=== PATIENT | female | born 1975 | race Caucasian/White ===

== ENCOUNTER 2016-06-24 07:34 | Outpatient (CLI) ==
[2013-06-29 00:37] VITALS: BMI 36.3
[2016-06-24 08:19] LABS: CREATININE 0.75 mg/dL (0.60-1.30)
--- NOTE | 2016-06-24 10:10 | CT ---
EXAM: CT soft tissue neck with and without contrast. HISTORY: Neck pain. Palpable anterior neck mass. COMPARISON: None available. TECHNIQUE: Multiple axial images of the neck were obtained prior to and following intravenous admin istration of 75 mL of Omnipaque 350, low osmolar. Images were reformatted in the sagittal and coron al plane. FINDINGS: No intracranial or intraorbital abnormality identified. Paranasal sinuses and mastoid ai r cells are clear. The parotid and submandibular glands are unremarkable. Multiple lymph nodes present throughout the neck at multiple levels bilaterally, none measuring greater than 0.7 cm short axis. Radiopaque emeka er was placed in the anterior right neck near the submental region to the right of midline in the ar ea of concern. There is a 0.5 cm lymph node present near this area. 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 No subcutaneous edema or fluid collections no sidney. The pharyngeal soft tissues, epiglottis and laryngeal structures are without localized abnormality. Subglottic airway is normal in caliber. Thyroid gland is normal in size. Vascular structures of t he neck are patent. Lung apices are clear. Osseous structures are within normal limits for the patient's age. IMPRESSION: 1. 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 The asymmetry caused by the p resence of the right mylohyoid muscle may account for the palpable concern. 2. Small nonenlarged cervical lymph nodes, including in the right submental region which could also account for the palpable concern. 3. No significant abnormality detected in the neck
== END 2016-06-24 07:35 | disposition home or self-care (01) ==
LOC: RAD 07:34
PROVIDERS: ATTEND Family Medicine
DX: R22.1 Localized swelling, mass and lump, neck (principal)
CPT/HCPCS: 36415; 82565

== ENCOUNTER 2018-04-11 13:16 | Emergency (ER) ==
[2018-04-11 13:21] VITALS: BP 142/68; TEMP 98.8; BMI 36.2
[2018-04-11] MEDS ORDERED: ZOFRAN 4 MG/2 ML IM STA (13:31)
[2018-04-11] MEDS ORDERED: SODIUM CHLORIDE 1,000 ML IV STA ×2 (13:33→14:40)
[2018-04-11] MEDS ORDERED: ZOFRAN 4 MG/2 ML IVP STA ×2 (13:33→15:15)
[2018-04-11] MEDS ORDERED: K-DUR PO STA ×2 (14:01→17:19)
--- NOTE | 2018-04-11 14:07 | CT ---
EXAM: CT of the abdomen pelvis without contrast History: Abdominal pain with nausea and vomiting. Comparison: CT abdomen pelvis 04/21/2013 Technique: Multiplanar CT images through the abdomen pelvis were obtained without the administration of IV contrast Findings: Lung bases are clear. No acute osseous abnormalities. No focal liver or splenic lesions. No renal stones and no hydronephrosis. No ureteral calculi. Sta ble tiny benign left adrenal adenoma. Right adrenal gland is unremarkable. The appendix is normal. No peripancreatic inflammation. No free air and no ascites. No inflammatory stranding. No bladder wall thickening. No perirectal inflammation. No pelvic masses. No bowel obstruction. Impression: No acute intra-abdominal or pelvic process
--- NOTE | 2018-04-11 15:07 | ED.PDOC ---
General ED Provider: Dr. KOLBY BONILLA Chief Complaint: Nausea/Vomiting Stated Complaint: ABDOMINAL PAIN NAUSEA, VOMITING Time Seen by Physician: 13:19 (NURSE PRESENT AT ALL TIMES NO VOMITING IN ER ) Mode of Arrival: Walk-In Information Source: Patient Exam Limitations: No limitations Primary Care Provider: CAROLINE HASSAN Nursing and Triage Documentation Reviewed and Agree: Yes Does patient meet sepsis criteria?: No If yes, has appropriate treatment been initiated?: No System Inflammatory Response Syndrome: Not Applicable Sepsis Protocol: For patient's 13 years and over: Temp is 96.8 and below OR 101 and greater Pulse >90 BPM Resp >20/minute Acutely Altered Mental Status Are patient's symptoms suggestive of a new infection, such as: -Pneumonia -Skin, Soft Tissue -Endocarditis -UTI -Bone, Joint Infection -Implantable Device -Acute Abdominal Infection -Wound Infection -Meningitis -Blood Stream Catheter Infection -Unknown GI Complaint Exam - Abdominal Pain Complaint/Exam Onset: Gradual Duration: 2 DAYS Symptoms Are: Resolved Timing: Intermittent Initial Severity: Mild Current Severity: None Location of Pain: Diffuse Character: Reports: Aching Aggravating: Reports: None Alleviating: Reports: None Associated Signs and Symptoms: Reports: Decreased appetite, Nausea, Vomiting. Denies: Diaphoresis, Fever, Cough, Chest pain, Dizziness, Back pain, Constipation, Blood in stool, Dysuria, Urinary frequency, Decreased urine output , Vaginal bleeding, Vaginal discharge, Diarrhea, Sore throat, Decreased activity AAA Risk Factors: Reports: None Cardiac Risk Factors: Reports: None Ectopic Risk Factors: Reports: None Ovarian Torsion Risk Factors: Reports: None Surgical Obstruction Risk Factors: Reports: None Patient Rh Status: Unknown Abdominal Findings: Present: None Differential Diagnoses: Appendicitis, Bowel Obstruction, Gastroenteritis, UTI Review of Systems - Review Of Systems Constitutional: Reports: No symptoms Eyes: Reports: No symptoms Ears, Nose, Mouth, Throat: Reports: No symptoms Respiratory: Reports: No symptoms Cardiac: Reports: No symptoms GI: Reports: Abdominal pain, Nausea, Poor appetite : Reports: No symptoms Musculoskeletal: Reports: No symptoms Skin: Reports: No symptoms Neurological: Reports: No symptoms Endocrine: Reports: No symptoms Hematologic/Lymphatic: Reports: No symptoms All Other Systems: Reviewed and Negative Past Medical History - Past Medical History Previously Healthy: Yes Endocrine: Reports: None Cardiovascular: Reports: None Respiratory: Reports: None Hematological: Reports: None Gastrointestinal: Reports: None Genitourinary: Reports: None Neuro/Psych: Reports: None Musculoskeletal: Reports: None Cancer: Reports: None Last Menstrual Period: none - Surgical History General Surgical History: Reports: Cholecystectomy, Other (C SECTION) - Family History Family History: Reports: None - Social History Smoking Status: Current every day smoker, Heavy tobacco smoker Hx Substance Use: No Alcohol Screening: None Physical Exam - Physical Exam Appearance: Well-appearing, No pain distress, Well-nourished Eyes: MICHELLE, EOMI, Conjunctiva clear ENT: Ears normal, Nose normal, Oropharynx normal Respiratory: Airway patent, Breath sounds clear, Breath sounds equal, Respirations nonlabored Cardiovascular: RRR, Pulses normal, No rub, No murmur GI/: Soft, Nontender, No masses, Bowel sounds normal, No Organomegaly Musculoskeletal: Normal strength, ROM intact, No edema, No calf tenderness Skin: Warm, Dry, Normal color Neurological: Sensation intact, Motor intact, Reflexes intact, Cranial nerves intact, Alert, Oriented Psychiatric: Affect appropriate, Mood appropriate Interpretation - Radiology Interpretation Radiology Interpretation By: Radiologist Radiology Results: No acute changes Re-Evaluation - Re-Evaluation Time of Re-Evaluation: 14:00 Status: Improved Vital Signs Stable: Yes Pain Level: 0 Appearance: NAD Lungs: Clear Skin: Warm and Dry Neuro: Alert and Oriented X3 CV: RRR - Re-Evaluation Time of Re-Evaluation: 15:07 Status: Improved Vital Signs Stable: Yes Pain Level: 0 Appearance: NAD Skin: Warm and Dry Neuro: Alert and Oriented X3 CV: RRR (ABNORMAL LFT AND HEPATIC PANEL SEND OUT DISCUSSED URGED TO FOLLOW UP WITH PMD) Critical Care Note - Critical Care Note Total Time (mins): 0 Course - Course Hematology/Chemistry: 04/11/18 13:35 04/11/18 13:35 Orders, Labs, Meds: Lab Review 04/11/18 04/11/18 04/11/18 13:35 13:35 13:45 WBC 10.69 H RBC 5.24 Hgb 14.0 Hct 42.0 MCV 80.2 L MCH 26.7 L MCHC 33.3 RDW Coeff of Gadiel 14.1 Plt Count 330 Immature Gran % (Auto) 0.4 Neut % (Auto) 66.6 Lymph % (Auto) 25.0 Cameron % (Auto) 7.7 Eos % (Auto) 0.0 Baso % (Auto) 0.3 Immature Gran # (Auto) 0.0 Neut # (Auto) 7.1 H Lymph # (Auto) 2.7 Cameron # (Auto) 0.8 Eos # (Auto) 0.0 Baso # (Auto) 0.0 Sodium 138.5 Potassium 3.10 L Chloride 91.1 L Carbon Dioxide 32.6 H Anion Gap 17.90 BUN 17.0 Creatinine 0.76 Estimated GFR (MDRD) 84.00 BUN/Creatinine Ratio 22.36 Glucose 131.3 H Calcium 9.69 Total Bilirubin 1.36 H AST 57.1 H ALT 47.4 H Alkaline Phosphatase 55.5 Total Protein 8.42 H Albumin 4.97 Globulin 3.45 Albumin/Globulin Ratio 1.44 Amylase 56.2 Lipase 48.2 Urine Color Urine Clarity Urine pH Ur Specific Speer Urine Protein Urine Glucose (UA) Urine Ketones Urine Blood Urine Nitrite Urine Bilirubin Urine Urobilinogen Ur Leukocyte Esterase Urine Microscopic RBC Urine Microscopic WBC Ur Squamous Epith Cells Urine Bacteria Influ A Molecular Assay Negative by naat Influ B Molecular Assay Negative by naat 04/11/18 15:31 WBC RBC Hgb Hct MCV MCH MCHC RDW Coeff of Gadiel Plt Count Immature Gran % (Auto) Neut % (Auto) Lymph % (Auto) Cameron % (Auto) Eos % (Auto) Baso % (Auto) Immature Gran # (Auto) Neut # (Auto) Lymph # (Auto) Cameron # (Auto) Eos # (Auto) Baso # (Auto) Sodium Potassium Chloride Carbon Dioxide Anion Gap BUN Creatinine Estimated GFR (MDRD) BUN/Creatinine Ratio Glucose Calcium Total Bilirubin AST ALT Alkaline Phosphatase Total Protein Albumin Globulin Albumin/Globulin Ratio Amylase Lipase Urine Color Yellow Urine Clarity Clear Urine pH 7.0 Ur Specific Speer 1.020 Urine Protein 1+ Urine Glucose (UA) Negative Urine Ketones 2+ Urine Blood 1+ Urine Nitrite Negative Urine Bilirubin Negative Urine Urobilinogen 1.0 Ur Leukocyte Esterase Negative Urine Microscopic RBC 10-20 Urine Microscopic WBC 0-2 Ur Squamous Epith Cells 0-2 Urine Bacteria Trace Influ A Molecular Assay Influ B Molecular Assay Orders Category Date Time Status EKG-(ED ONLY) Stat CARDIO 04/11/18 15:52 Completed NPO REMINDER: IMAGING ONCE CARE 04/11/18 15:54 Active AMYLASE Stat LAB 04/11/18 13:35 Completed CBC W/ AUTO DIFF Stat LAB 04/11/18 13:35 Completed COMPREHENSIVE METABOLIC PANEL Stat LAB 04/11/18 13:35 Completed FLU A/B MOLECULAR Stat LAB 04/11/18 13:45 Completed HEPATITIS PANEL, ACUTE Stat LAB 04/11/18 13:35 Received LIPASE Stat LAB 04/11/18 13:35 Completed MOLECULAR GROUP A STREP Stat LAB 04/11/18 13:45 Completed URINALYSIS C & S IF INDICATED Stat LAB 04/11/18 15:31 Completed Ondansetron HCl/Pf [Zofran 4 mg/2 ml] MEDS 04/11/18 13:33 Discontinued 4 mg IVP ONCE STA Ondansetron HCl/Pf [Zofran 4 mg/2 ml] MEDS 04/11/18 15:15 Discontinued 4 mg IVP ONCE STA Pantoprazole Sodium [Protonix IV] MEDS 04/11/18 15:54 Discontinued 40 mg IVP ONCE STA Potassium Chloride [K-Dur] MEDS 04/11/18 17:19 Discontinued 40 meq PO ONCE STA Promethazine HCl [Phenergan 25 mg/ml Vial] MEDS 04/11/18 16:14 Discontinued 25 mg .ROUTE .STK-MED ONE Promethazine HCl [Phenergan 25 mg/ml Vial] 25 mg MEDS 04/11/18 15:54 Discontinued 0.9 % Sodium Chloride [Sodium Chloride] 50 ml IV ONCE Sodium Chloride 0.9% [Sodium Chloride] 1,000 ml MEDS 04/11/18 13:33 Discontinued IV BOLUS Sodium Chloride 0.9% [Sodium Chloride] 1,000 ml MEDS 04/11/18 14:[address] ABD/PEL WO RENAL STONE PROT Stat RADS 04/11/18 13:[address] ABDOMEN/PELVIS W CONTRAST Stat RADS 04/11/18 15:[address] CHEST W/O CONTRAST Stat RADS 04/11/18 15:53 Completed Medications Discontinued Medications Generic Name Dose Route Start Last Admin Trade Name Freq PRN Reason Stop Dose Admin Sodium Chloride 1,000 mls @ 1,000 mls/hr 04/11/18 13:33 04/11/18 13:42 Sodium Chloride IV 04/11/18 14:32 1,000 mls/hr BOLUS STA Administration Sodium Chloride 1,000 mls @ 1,000 mls/hr 04/11/18 14:40 04/11/18 14:44 Sodium Chloride IV 04/11/18 15:39 1,000 mls/hr BOLUS STA Administration Promethazine HCl 25 mg/ Sodium 51 mls @ 75 mls/hr 04/11/18 15:54 04/11/18 16: 20 Chloride IV 04/11/18 16:34 75 mls/hr ONCE STA Administration Ondansetron HCl 4 mg 04/11/18 13:33 04/11/18 13:42 Zofran 4 Mg/2 Ml IVP 04/11/18 13:34 4 mg ONCE STA Administration Ondansetron HCl 4 mg 04/11/18 15:15 04/11/18 15:36 Zofran 4 Mg/2 Ml IVP 04/11/18 15:16 4 mg ONCE STA Administration Pantoprazole Sodium 40 mg 04/11/18 15:54 04/11/18 16:20 Protonix Iv IVP 04/11/18 15:55 40 mg ONCE STA Administration Potassium Chloride 40 meq 04/11/18 17:19 K-Dur PO 04/11/18 17:20 ONCE STA Vital Signs: Temp Pulse Resp BP Pulse Ox 04/11/18 13:17 98.8 F 52 L 20 142/68 H 97 Departure - Departure Time of Disposition: 15:09 (pelvic mass discusseed with the pt present kane malave ) Disposition: HOME SELF-CARE Discharge Problem: Nausea, Vomiting, Hypokalemia, Abnormal liver enzymes Abdominal pain Qualifiers: Abdominal location: unspecified location Qualified Code(s): R10.9 - Unspecified abdominal pain Instructions: Abdominal Pain (ED) Condition: Good Pt referred to PMD for follow-up: Yes IPMP verified?: No Additional Instructions: Please call your Family Physician as soon as possible to schedule a follow-up appointment. your liver enzymes are high this could mean underlying liver disease or an infection. A hepatitis panel has been ordered for you the results will take a few days to return. SEE YOU MD COR[place] K-Dur 40mg daily for 4 days (4 tabs)---Start in the am Zofran 4mg twice a day for 2 days (5 tabs) AMASS EXIST IN YOUR PELVIS YOU MUST SEE YOUR MD Allergies/Adverse Reactions: Allergies latex Adverse Reaction (Verified 04/11/18 13:22) pain medicine Adverse Reaction (Uncoded 04/11/18 13:22) Home Medications: Ambulatory Orders 1 [No Reported Medications] 03/01/13 Disposition Discussed With: Patient
[2018-04-11] MEDS ORDERED: PHENERGAN 25 MG/ML VIAL 25 MG in SODIUM CHLORIDE 50 ML IV STA (15:54)
[2018-04-11] MEDS ORDERED: PROTONIX IV IVP STA (15:54)
[2018-04-11] MEDS ORDERED: PHENERGAN 25 MG/ML VIAL ONE (16:14)
--- NOTE | 2018-04-11 16:22 | CT ---
EXAM: CT of the chest without contrast History: Cough. Comparison: Chest radiograph 04/21/2013, CT abdomen pelvis 04/11/2018 Technique: Multiplanar CT images through the thorax were obtained without the administration of IV c ontrast Findings: Heart size is normal. No pericardial effusion. No thoracic aortic aneurysm. No patholog ically enlarged thoracic lymph nodes. No consolidation. No pleural fluid and no pneumothorax. No l matthieu masses or lung nodules. For details in the upper abdomen, please see dedicated CT abdomen pelvis done on the same day. No ac [place] osseous abnormalities. Impression: Unremarkable exam
--- NOTE | 2018-04-11 16:33 | CT ---
EXAM: CT of the abdomen pelvis with contrast History: Abdominal pain and vomiting. Comparison: Right upper quadrant abdominal ultrasound 04/21/2013, CT abdomen pelvis 04/11/2018 Technique: Multiplanar CT images through the abdomen pelvis were obtained following administration o f IV contrast Findings: Lung bases are clear. No acute osseous abnormalities. Status post cholecystectomy. No focal liver or splenic lesions. Pancreas is within normal limits. Stable small benign left adrenal adenoma. Right adrenal gland is within normal limits. No renal mas ses. No hydronephrosis. The appendix is normal. No bowel obstruction. No bladder wall thickening. No free air and no ascites. 2.6 cm lobulated mass within the midline central pelvis appears to be associated with the uterus or vaginal cuff. No perirectal inflammation. Normal abdominal aorta. Fl uid seen in the stomach. Nondilated fluid filled loops of large and small bowel and mild mucosal pro minence of the bowel. Impression: 1. Mild gastroenteritis. No evidence for bowel obstruction. 2. Lobulated mass within the midline central pelvis could represent uterine fibroid or abnormality o f the vaginal cuff if patient has had a hysterectomy. Recommend further evaluation with outpatient p elvic ultrasound.
== END 2018-04-11 17:38 | disposition home or self-care (01) ==
LOC: ED 13:16
DX: R11.2 Nausea with vomiting, unspecified (principal); R10.9 Unspecified abdominal pain; R63.0 Anorexia; E87.6 Hypokalemia; R94.5 Abnormal results of liver function studies
CPT/HCPCS: 36415; 74176; 80053; 80074; 81001; 82150; 83690; 85025; 87502; 87651; 93005; 93010; 96361; 96365; 96375; 96376; 99283

== ENCOUNTER 2018-08-09 11:07 | Emergency (ER) ==
[2018-08-09 11:15] VITALS: BP 126/83; TEMP 97.6; BMI 35.4
[2018-08-09] MEDS ORDERED: ASPIRIN CHEWABLE PO STA (11:46)
--- NOTE | 2018-08-09 13:24 | CT ---
EXAM: CTA CHEST (PE PROTOCOL) HISTORY: Pain and shortness of breath TECHNIQUE: CTA chest with intravenous contrast. Multiplanar images were provided with 3-D reconstru ctions. 100 mL Omnipaque. COMPARISON: 04/11/2018 FINDINGS: No pulmonary arterial filling defect. Thoracic aorta is within normal limits. Normal heart size. T here is no pericardial effusion. Lung evaluation is limited by respiratory motion. No sanjana consolidated pneumonia is seen. Mild int erstitial infiltrate would be difficult to completely excluded. There is no pleural fluid or pneumot horax. There are no acute bony finding. IMPRESSION: 1. No pulmonary arterial thromboembolism. 2. Limited evaluation of the lungs. No consolidated pneumonia, pleural fluid or pneumothorax. It w ould be difficult to exclude mild interstitial pneumonitis or edema.
[2018-08-09] MEDS ORDERED: DECADRON 4 MG/ML SDV IM STA (13:47)
--- NOTE | 2018-08-09 13:47 | ED.PDOC ---
General ED Provider: Dr. KOLBY BONILLA Chief Complaint: Shortness of Air Stated Complaint: short of air , cough , congestion chest pain with coughing shadi Time Seen by Physician: 11:11 Mode of Arrival: Walk-In Information Source: Patient Exam Limitations: No limitations (nursing present ) Nursing and Triage Documentation Reviewed and Agree: Yes Does patient meet sepsis criteria?: No System Inflammatory Response Syndrome: Not Applicable Sepsis Protocol: For patient's 13 years and over: Temp is 96.8 and below OR 101 and greater Pulse >90 BPM Resp >20/minute Acutely Altered Mental Status Are patient's symptoms suggestive of a new infection, such as: -Pneumonia -Skin, Soft Tissue -Endocarditis -UTI -Bone, Joint Infection -Implantable Device -Acute Abdominal Infection -Wound Infection -Meningitis -Blood Stream Catheter Infection -Unknown Respiratory Complaint Exam - Respiratory Complaint/Exam Onset/Duration: 3 days Symptoms Are: Resolved Timing: Intermittent Initial Severity: Moderate Location: Nose, Throat, Chest Character: Reports: Non-productive cough Aggravating: Reports: URI Alleviating: Reports: Spontaneous resolution Associated Signs and Symptoms: Reports: Chills, Pleuritic chest pain, URI, Nasal congestion Related History: Reports: Similar episode History of Healthcare-Acquired Pneumonia: No Pulmonary Embolism Risk Factors: Smoking (1/2 pk) Cardiac Risk Factors: Reports: Smoking Pseudomonas Risk Factors: Reports: None Tuberculosis Risk Factors: Reports: None Status Asthmaticus Risk Factors: Reports: None Home Oxygen Use: No Recent Stress Test: No Recent Echo/LV Function: No Current Antibiotic Use: No Current Asthma Medication Use: No Inadequate Respiratory Effort: No Dysphagia Present: No Stridor Present: No JVD Present: No Accessory Muscle Use: No Retractions: Not Present Diminished Breath Sounds: No Sinus Tenderness: None Grunting Respirations: No Kussmaul Respirations: No Differential Diagnoses: COPD Exacerbation, Pneumonia, Bronchitis, URI, Lower Resp. Infection Non-Traumatic Chest Pain Syncope: EKG Performed Review of Systems - Review Of Systems Constitutional: Reports: Chills, Malaise Eyes: Reports: No symptoms Ears, Nose, Mouth, Throat: Reports: No symptoms Respiratory: Reports: Cough, Short of air, Wheezing Cardiac: Reports: No symptoms GI: Reports: No symptoms : Reports: No symptoms Musculoskeletal: Reports: No symptoms Skin: Reports: No symptoms Neurological: Reports: No symptoms Endocrine: Reports: No symptoms Hematologic/Lymphatic: Reports: No symptoms All Other Systems: Reviewed and Negative Past Medical History - Past Medical History Previously Healthy: Yes Endocrine: Reports: None Cardiovascular: Reports: None Respiratory: Reports: None Hematological: Reports: None Gastrointestinal: Reports: None Genitourinary: Reports: None Neuro/Psych: Reports: None Musculoskeletal: Reports: None Cancer: Reports: None Last Menstrual Period: n/a - Surgical History General Surgical History: Reports: Cholecystectomy, Other (C SECTION) - Family History Family History: Reports: None - Social History Smoking Status: Current every day smoker, Heavy tobacco smoker Hx Substance Use: No Alcohol Screening: None - Immunizations Tetanus Shot up to Date: No Physical Exam - Physical Exam Appearance: Well-appearing, No pain distress, Well-nourished Eyes: MICHELLE, EOMI, Conjunctiva clear ENT: Ears normal, Nose normal, Oropharynx normal Respiratory: Airway patent, Breath sounds equal, Respirations nonlabored, Rhonchi Cardiovascular: RRR, Pulses normal, No rub, No murmur GI/: Soft, Nontender, No masses, Bowel sounds normal, No Organomegaly Musculoskeletal: Normal strength, ROM intact, No edema, No calf tenderness Skin: Warm, Dry, Normal color Neurological: Sensation intact, Motor intact, Reflexes intact, Cranial nerves intact, Alert, Oriented Psychiatric: Affect appropriate, Mood appropriate Interpretation - Radiology Interpretation Radiology Interpretation By: Radiologist Radiology Results: No acute changes Exam Interpreted: CT Scan (negative PE ) Re-Evaluation - Re-Evaluation Time of Re-Evaluation: 12:00 Status: Improved Vital Signs Stable: Yes Pain Level: 0 Appearance: NAD Lungs: Clear Skin: Warm and Dry Neuro: Alert and Oriented X3 CV: RRR - Re-Evaluation Time of Re-Evaluation: 13:47 Status: Improved Vital Signs Stable: Yes Pain Level: 0 Appearance: NAD Skin: Warm and Dry Neuro: Alert and Oriented X3 CV: RRR Critical Care Note - Critical Care Note Total Time (mins): 0 Course - Course Hematology/Chemistry: 08/09/18 11:55 08/09/18 11:55 Orders, Labs, Meds: Lab Review 08/09/18 08/09/18 08/09/18 11:55 11:55 11:55 WBC 11.27 H RBC 4.65 Hgb 12.9 Hct 39.8 MCV 85.6 MCH 27.7 MCHC 32.4 RDW Coeff of Gadiel 14.0 Plt Count 256 Immature Gran % (Auto) 0.3 Neut % (Auto) 79.7 Lymph % (Auto) 13.6 [place] % (Auto) 4.8 Eos % (Auto) 1.0 Baso % (Auto) 0.6 Immature Gran # (Auto) 0.0 Neut # (Auto) 9.0 H Lymph # (Auto) 1.5 [place] # (Auto) 0.5 Eos # (Auto) 0.1 Baso # (Auto) 0.1 PT 9.6 INR 0.96 APTT 25.6 Sodium 139.2 Potassium 4.06 Chloride 102.8 Carbon Dioxide 26.9 Anion Gap 13.56 BUN 8.7 Creatinine 0.62 Estimated GFR (MDRD) 106.00 BUN/Creatinine Ratio 14.03 Glucose 124.1 H Calcium 9.12 Total Bilirubin 0.50 AST 15.6 ALT 15.8 Alkaline Phosphatase 52.5 Total Creatine Kinase 33.6 Troponin I < 0.012 Total Protein 6.81 Albumin 4.44 Globulin 2.37 Albumin/Globulin Ratio 1.87 Orders Category Date Time Status EKG-(ED ONLY) Stat CARDIO 08/09/18 11:45 Completed NPO REMINDER: IMAGING ONCE CARE 08/09/18 11:46 Completed CBC W/ AUTO DIFF Stat LAB 08/09/18 11:55 Completed COMPREHENSIVE METABOLIC PANEL Stat LAB 08/09/18 11:55 Completed CREATINE KINASE Stat LAB 08/09/18 11:55 Completed PARTIAL THROMBOPLASTIN TIME Stat LAB 08/09/18 11:55 Completed PT WITH INR Stat LAB 08/09/18 11:55 Completed TROPONIN I Stat LAB 08/09/18 11:55 Completed Aspirin [Aspirin Chewable] MEDS 08/09/18 11:46 Discontinued 324 mg PO ONCE STA CT CHEST PE PROTOCOL Stat RADS 08/09/18 11:45 Completed Medications Discontinued Medications Generic Name Dose Route Start Last Admin Trade Name Freq PRN Reason Stop Dose Admin Aspirin 324 mg 08/09/18 11:46 08/09/18 11:59 Aspirin Chewable PO 08/09/18 11:47 324 mg ONCE STA Administration Vital Signs: Temp Pulse Resp BP Pulse Ox 08/09/18 11:07 97.6 F 72 20 126/83 97 Departure - Departure Time of Disposition: 13:50 Disposition: HOME SELF-CARE Discharge Problem: Cough, Bronchitis Dyspnea Qualifiers: Dyspnea type: unspecified Qualified Code(s): R06.00 - Dyspnea, unspecified Instructions: Dyspnea (ED), Acute Cough (ED), How to Stop Smoking (ED), Electronic Cigarettes and Your Health (ED), Secondhand Smoke Exposure in Children (ED) Condition: Good Pt referred to PMD for follow-up: Yes IPMP verified?: No Additional Instructions: Please call your Family Physician as soon as possible to schedule a follow-up appointment. Prescriptions: Amoxicillin 500 mg PO Q8HR #30 tablet Prednisone 40 mg PO DAILYWM #5 tablet Allergies/Adverse Reactions: Allergies latex Adverse Reaction (Verified 08/09/18 11:17) pain medicine Adverse Reaction (Uncoded 04/11/18 13:22) Home Medications: Ambulatory Orders Amoxicillin 500 mg PO Q8HR #30 tablet 08/09/18 Prednisone 40 mg PO DAILYWM #5 tablet 08/09/18 Disposition Discussed With: Patient
[2018-08-09] MEDS ORDERED: DECADRON 4 MG/ML SDV 4 MG in SODIUM CHLORIDE 50 ML IV STA (13:51)
[2018-08-09] MEDS ORDERED: SODIUM CHLORIDE 1,000 ML IV STA (13:53)
[2018-08-09] MEDS ORDERED: DECADRON 4 MG/ML SDV ONE (14:08)
[2018-08-09] MEDS ORDERED: ZOFRAN 4 MG/2 ML IVP STA (15:03)
== END 2018-08-09 15:15 | disposition home or self-care (01) ==
LOC: ED 11:07
DX: J40 Bronchitis, not specified as acute or chronic (principal); R06.00 Dyspnea, unspecified; F17.210 Nicotine dependence, cigarettes, uncomplicated
CPT/HCPCS: 36415; 80053; 82550; 84484; 85025; 85610; 85730; 93005; 93010; 96361; 96365; 99283

== ENCOUNTER 2023-05-15 23:54 | Observation (INO) ==
[2023-05-16 00:01] VITALS: BMI 34.3
--- NOTE | 2023-05-16 00:05 | ED.PDOC ---
General ED Provider: Dr. KOLBY BRAMBILA MD Chief Complaint: Nausea/Vomiting Stated Complaint: Patient with history of depression complains of 3 days of left lower abdominal pain associated frequent stools emesis episode diarrhea today. Patient was seen yesterday morning emergency room with abdominal pelvic CT scan consistent with a normal appendix and a left adnexal cyst measuring 3.8 x 3.4 cm. The kidneys are morphologically normal there is no free fluid inflammatory changes noted. Patient complains of frequent episodes of emesis since being discharged yesterday morning, Time Seen by Provider: 05/16/23 00:05 Mode of Arrival: Walk-In Information Source: Patient Exam Limitations: No limitations Primary Care Provider: EMRE TOVAR MD Seen Within Last 72 Hours for Same Complaint By: ED Nursing and Triage Documentation Reviewed and Agree: Yes What is Opioid Naive?: *Opioid Naive implies the patient is not already taking opioids or not chronically receiving opioids on a daily basis. *PRN dosing is not "usually" associated with tolerance. *Patients are at higher risk of over-sedation and aspiration. What is Opioid Tolerant?: *Opioid Tolerance implies less than the expected response to an opioid. *Acquired tolerance is defined by the patient taking 60mg of oral morphine daily (or equianalgesic dose of another opioid) for 1 week or more. *Often associated with chronic pain. *May take more than usual dose to achieve desired pain control. Review of Systems Review Of Systems Constitutional: Reports No symptoms Eyes: Reports No symptoms Ears, Nose, Mouth, Throat: Reports No symptoms Respiratory: Reports No symptoms Cardiac: Reports No symptoms GI: Reports Abdominal pain, Nausea and Vomiting : Reports No symptoms Musculoskeletal: Reports No symptoms Skin: Reports No symptoms Neurological: Reports No symptoms Endocrine: Reports No symptoms Hematologic/Lymphatic: Reports No symptoms All Other Systems: Reviewed and Negative [facility] Medical History Gastroesophageal reflux disease K21.9 - Gastro-esophageal reflux disease without esophagitis (ICD-10) Gastrointestinal problem R19.8 - Other specified symptoms and signs involving the digestive system and abdomen (ICD-10) Family History FATHER Drug abuse Alcoholism f Cancer Social History Smoking and tobacco status: Current every day smoker Surgical History History of tubal ligation (09/27/03) Z98.51 - Tubal ligation status (ICD-10) Status post hysterectomy (10/01/11) Z90.710 - Acquired absence of both cervix and uterus (ICD-10) Status post hernia repair (09/16/04) Z98.890 - Other specified postprocedural states (ICD-10) Status post cholecystectomy (09/18/10) Z90.49 - Acquired absence of other specified parts of digestive tract (ICD- 10) History of section x3 Z98.891 - History of uterine scar from previous surgery (ICD-10) Female Reproductive History Menstrual Hx Hysterectomy: Yes Hx Tubal Ligation: Yes (2003) Physical Exam Physical Exam Appearance: Reports Ill-appearing Ill-appearing: Mild Pain Distress: Moderate Eyes: Reports MICHELLE and Conjunctiva clear ENT: Reports Ears normal, Nose normal and Oropharynx normal Respiratory: Reports Airway patent, Breath sounds clear, Breath sounds equal and Breath sounds diminished Cardiovascular: Reports RRR, Pulses normal, No rub and No murmur GI/: Reports Soft, No masses and Tender (There is left lower quadrant tenderness adjacent to the pubic symphysis.) Musculoskeletal: Reports Normal strength, ROM intact, No edema and No calf tenderness Skin: Reports Warm, Dry and Normal color Neurological: Reports Sensation intact, Motor intact, Reflexes intact and Cranial nerves intact Psychiatric: Reports Affect appropriate, Mood appropriate and Anxious Re-Evaluation Re-Evaluation Time of Re-Evaluation: 02:00 Status: Unchanged Vital Signs Stable: Yes Pain Level: No improvement in nausea Physician Notification Case Discussed Physician Notified: Discussed with hospitalist Gautam Cabrera Time of Notification: 22:24 Comments: Discussed the patient's progress laboratory data results of prior CT scan findings recommendations for observation Critical Care Note Critical Care Note Total Critical Care Time (mins): 0 Course Course 05/16/23 00:40 05/16/23 00:40 Orders, Labs, Meds: Lab Review 05/16/23 00:40 WBC 9.71 RBC 4.47 Hgb 12.3 Hct 37.7 MCV 84.3 MCH 27.5 MCHC 32.6 RDW Coeff of Gadiel 14.0 Plt Count 248 Immature Gran % (Auto) 0.3 Neut % (Auto) 73.4 Lymph % (Auto) 19.7 [place] % (Auto) 5.9 Eos % (Auto) 0.2 Baso % (Auto) 0.5 Neut # (Auto) 7.1 H Lymph # (Auto) 1.9 [place] # (Auto) 0.6 Eos # (Auto) 0.0 Baso # (Auto) 0.1 Immature Gran # (Auto) 0.0 Sodium 138.7 Potassium 3.95 Chloride 102.5 Carbon Dioxide 29.5 Anion Gap 10.65 BUN 17.0 Creatinine 0.81 Estimated GFR (MDRD) 76.00 BUN/Creatinine Ratio 20.98 Glucose 147.0 H Calcium 9.12 Magnesium 2.03 Lipase 189.7 Orders Category Date Time Status BMP [BASIC METABOLIC PANEL] Stat LAB 05/16/23 00:40 Completed CBC W/ AUTO DIFF Stat LAB 05/16/23 00:40 Completed COVID [SARS COV-2 RNA RAPID LANNY] Stat LAB 05/16/23 02:25 Received LIPASE Stat LAB 05/16/23 00:40 Completed MAGNESIUM Stat LAB 05/16/23 00:40 Completed URINALYSIS C & S IF INDICATED Stat LAB 05/16/23 00:14 Uncollected Ketorolac Tromethamine [Toradol] Meds 05/16/23 00:17 Discontinued 30 mg IVP ONCE STA Morphine Sulfate [Morphine 4 mg/ml Syringe] Meds 05/16/23 01:51 Discontinued 4 mg IVP ONCE ONE Naloxone HCl [Narcan] Meds 05/16/23 01:51 Active 2 mg IM Q2MIN PRN Ondansetron HCl/Pf [Zofran 4 mg/2 ml] Meds 05/16/23 00:17 Discontinued 4 mg IVP ONCE STA Pantoprazole Sodium [Protonix] Meds 05/16/23 00:17 Discontinued 40 mg IVP ONCE ONE Promethazine HCl [Phenergan 25 mg/ml Vial] Meds 05/16/23 01:34 Discontinued 25 mg IM ONCE ONE Sodium Chloride 0.9% [Sodium Chloride] 1,000 ml Meds 05/16/23 00:15 Discontinued IV 500 mls/hr Medications Generic Name Dose Route Start Last Admin Trade Name Freq PRN Reason Stop Dose Admin Naloxone HCl 2 mg 05/16/23 01:51 Naloxone Hcl 2 Mg/2 Ml Disp.Syrin IM Q2MIN PRN POSS>3 Discontinued Medications Generic Name Dose Route Start Last Admin Trade Name Yousif PRN Reason Stop Dose Admin Sodium Chloride 1,000 mls @ 500 mls/hr 05/16/23 00:15 05/16/23 00:46 Sodium Chloride IV 05/16/23 02:14 500 mls/hr .Q2H ONE Administration Ketorolac Tromethamine 30 mg 05/16/23 00:17 05/16/23 00:44 Ketorolac Tromethamine 30 Mg/Ml Vial IVP 05/16/23 00:18 30 mg ONCE STA Administration Morphine Sulfate 4 mg 05/16/23 01:51 05/16/23 02:12 Morphine Sulfate 4 Mg/Ml Syringe IVP 05/16/23 01:52 4 mg ONCE ONE Administration Ondansetron HCl 4 mg 05/16/23 00:17 05/16/23 00:43 Ondansetron Hcl/Pf 4 Mg/2 Ml Sdv IVP 05/16/23 00:18 4 mg ONCE STA Administration Pantoprazole Sodium 40 mg 05/16/23 00:17 05/16/23 00:46 Pantoprazole Sodium 40 Mg Vial IVP 05/16/23 00:18 40 mg ONCE ONE Administration Promethazine HCl 25 mg 05/16/23 01:34 05/16/23 01:43 Promethazine Inj 25 Mg/Ml IM 05/16/23 01:35 25 mg ONCE ONE Administration Vital Signs: Temp Pulse Resp BP Pulse Ox 05/15/23 23:58 97.2 F L 57 L 20 158/110 H 95 Discharge Plan Discharge Patient Disposition: PLACED OBSERVATION Discharge Problem: Adnexal cyst, Intractable vomiting Prescriptions: No Action cyclobenzaprine 10 mg tablet 10 mg PO DAILY PRN (Reason: spasms) Qty: 20 0RF hydrocodone-acetaminophen 5-325 mg tablet 1 ea PO Q6HR PRN (Reason: severe pain ) Qty: 15 0RF Rx Instructions: meloxicam 15 mg tablet 15 mg PO DAILY Qty: 30 0RF ondansetron 4 mg tablet,disintegrating 4 mg PO Q8H Qty: 21 0RF potassium chloride 10 mEq capsule, extended release 10 meq PO BID Qty: 20 0RF buspirone 5 mg tablet 5 mg PO BID PRN (Reason: anxiety) Qty: 180 0RF Did you review [place] [employer] for ALL controlled substances?: Not Applicable ED Provider: KOLBY BRAMBILA Condition: Stable Physician Progress Note: History obtained from the patient complains of having 3-day history of left lower abdominal pain associate with emesis. Patient was seen emergency room [address] scan was obtained which showed no evidence of bowel obstruction, normal appendix. There is a new adnexal mass in the left adnexal measuring 3.8 x 3.4 cm. Patient given IV fluids normal saline 1 L at 500 mill/hour, Zofran 4 mg. Protonix 40 mg IV and Toradol 30 mg IV push 0135-patient states she has no improvement with nausea and pain Patient administered Phenergan 25 mg IM and morphine sulfate 4 mg IV Differential diagnosis: 1) intractable emesis 2) left adnexal cyst [] Discussed with Gautam Cabrera at 0224 for observation
[2023-05-16] MEDS: ZOFRAN 4 MG/2 ML IVP STA (00:43)
[2023-05-16] MEDS: TORADOL IVP STA (00:44)
[2023-05-16 00:45] LABS: BASOPHILS # (AUTO) 0.1 K/uL (0-0.2); BASOPHILS % (AUTO) 0.5 % (0.0-3.0); EOSINOPHILS % (AUTO) 0.2 % (0.0-7.0); HEMATOCRIT 37.7 % (37.0-47.0); HEMOGLOBIN 12.3 g/dl (12.0-16.0); IMMATURE GRANULOCYTE % (AUTO) 0.3 % (0.0-5.0); LYMPHOCYTES # (AUTO) 1.9 K/uL (0.60-3.4); LYMPHOCYTES % (AUTO) 19.7 (10.0-50.0); MEAN CORPUSCULAR HEMOGLOBIN 27.5 pg (27.0-31.0); MEAN CORPUSCULAR HGB CONC 32.6 (31.8-35.4); MEAN CORPUSCULAR VOLUME 84.3 fl (81.0-99.0); MONOCYTES # (AUTO) 0.6 K/uL (0.4-2.0); MONOCYTES % (AUTO) 5.9 (0-10); NEUTROPHILS # (AUTO) 7.1 K/ul (2.0-6.9); NEUTROPHILS % (AUTO) 73.4 % (42.2-75.2); PLATELET COUNT 248 10^3/uL (140-440); RED BLOOD COUNT 4.47 10^6/ul (4.20-5.40); WHITE BLOOD COUNT 9.71 K/ul (4.6-10.2)
[2023-05-16] MEDS: SODIUM CHLORIDE 1,000 ML IV ONE ×2 (00:46→03:05)
[2023-05-16] MEDS: PROTONIX IVP ONE (00:46)
[2023-05-16 00:59] LABS: CALCIUM 9.12 mg/dL (8.4-10.2); CARBON DIOXIDE 29.5 mmol/L (22-30.0); CHLORIDE 102.5 mmol/L (98-107); CREATININE 0.81 mg/dL (0.60-1.30); LIPASE 189.7 U/L (23-300); MAGNESIUM 2.03 mg/dL (1.6-2.3); POTASSIUM 3.95 mmol/L (3.5-5.1); SODIUM 138.7 mmol/L (134.5-145)
[2023-05-16] MEDS: PHENERGAN 25 MG/ML VIAL IM ONE (01:43)
[2023-05-16] MEDS ORDERED: NARCAN IM PRN ×2 (01:51→02:47)
[2023-05-16] MEDS: MORPHINE 4 MG/ML SYRINGE IVP ONE (02:12)
[2023-05-16 02:46] LABS: SARS COV-2 RNA RAPID NAAT NEGATIVE (NEGATIVE)
[2023-05-16] MEDS ORDERED: MORPHINE 4 MG/ML SYRINGE IVP PRN (02:47)
[2023-05-16] MEDS ORDERED: TYLENOL PO PRN (07:06)
[2023-05-16 07:35] LABS: BASOPHILS % (AUTO) 0.4 % (0.0-3.0); HEMATOCRIT 37.1 % (37.0-47.0); IMMATURE GRANULOCYTE % (AUTO) 0.2 % (0.0-5.0); LYMPHOCYTES % (AUTO) 23.5 (10.0-50.0); MEAN CORPUSCULAR HEMOGLOBIN 27.6 pg (27.0-31.0); MEAN CORPUSCULAR HGB CONC 32.3 (31.8-35.4); MEAN CORPUSCULAR VOLUME 85.3 fl (81.0-99.0); MONOCYTES # (AUTO) 0.6 K/uL (0.4-2.0); MONOCYTES % (AUTO) 7.4 (0-10); NEUTROPHILS # (AUTO) 5.9 K/ul (2.0-6.9); NEUTROPHILS % (AUTO) 68.5 % (42.2-75.2); PLATELET COUNT 220 10^3/uL (140-440); RED BLOOD COUNT 4.35 10^6/ul (4.20-5.40); WHITE BLOOD COUNT 8.57 K/ul (4.6-10.2)
[2023-05-16 08:13] LABS: ALANINE AMINOTRANSFERASE 59.9 U/L (0-35); ALBUMIN 3.72 g/dL (3.5-5.0); ALKALINE PHOSPHATASE 51.5 U/L (38-126); ASPARTATE AMINO TRANSFERASE 34.3 U/L (14-36); BILIRUBIN,TOTAL 0.96 mg/dL (0.2-1.3); BLOOD UREA NITROGEN 15.2 mg/dL (7-17); CALCIUM 8.38 mg/dL (8.4-10.2); CARBON DIOXIDE 26.4 mmol/L (22-30.0); CHLORIDE 105.6 mmol/L (98-107); CREATININE 0.66 mg/dL (0.60-1.30); GLUCOSE 116.6 mg/dL (74-106); SODIUM 136.2 mmol/L (134.5-145); TOTAL PROTEIN 6.18 g/dL (6.3-8.2)
[2023-05-16] MEDS ORDERED: BUSPAR PO PRN (10:01)
--- NOTE | 2023-05-16 10:03 | PCM ---
Date of Service Date Seen by Provider: 05/16/23 Time Seen by Provider: Admit Day/Time Admission Date: 05/16/23 Admission Time: Reason for Admission Chief Complaint: ACUTE EMESIS, L ADNEXAL CYST Hospital Provider Hospital Provider: CHENG SARAH, [facility] [place] Primary Care Physician Primary Care Physician: EMRE TOVAR MD History of Present Illness History of Present Illness: 47 yo female presented to the ER with vomiting and abdominal pain. Patient reports she has had ongoing vomiting x 4 days and been unable to eat. Has had chills and sweats. Last episode of vomiting was prior to admission. Received zofran and promethazine in the ER. Was seen in the ER and diagnosed with adnexal cyst and discharged home with pain and nausea medication. Abdominal pain located in LLQ, described as an ache. Denies urinary symptoms, fever, diarrhea. Denies bloody vomitus. Case Discussed With Case Discussed With: Patient's case was discussed with the ER Physicians, Dr. Wright. [facility] Medical History Gastroesophageal reflux disease K21.9 - Gastro-esophageal reflux disease without esophagitis (ICD-10) Gastrointestinal problem R19.8 - Other specified symptoms and signs involving the digestive system and abdomen (ICD-10) Surgical History History of tubal ligation (09/27/03) Z98.51 - Tubal ligation status (ICD-10) Status post hysterectomy (10/01/11) Z90.710 - Acquired absence of both cervix and uterus (ICD-10) Status post hernia repair (09/16/04) Z98.890 - Other specified postprocedural states (ICD-10) Status post cholecystectomy (09/18/10) Z90.49 - Acquired absence of other specified parts of digestive tract (ICD- 10) History of section x3 Z98.891 - History of uterine scar from previous surgery (ICD-10) Family History FATHER Drug abuse Alcoholism mgf Cancer Social History Smoking and tobacco status: Current every day smoker Allergies Allergies Allergy/AdvReac Type Severity Reaction Status Date / Time latex AdvReac Rash Verified 05/15/23 00:50 pain medicine AdvReac Nausea Uncoded 05/15/23 00:50 Current Medications Home Medications buspirone 5 mg tablet 5 mg PO BID PRN anxiety #180 tabs 05/07/23 [Rx Confirmed 05/16/23 Last Taken Unknown] cyclobenzaprine 10 mg tablet 10 mg PO DAILY PRN spasms #20 tabs 05/15/23 [Rx Confirmed 05/16/23 Last Taken Unknown] hydrocodone 5 mg-acetaminophen 325 mg tablet 1 ea PO Q6HR PRN severe pain #15 tabs 05/15/23 [Rx Confirmed 05/16/23 Last Taken Unknown] meloxicam 15 mg tablet 15 mg PO DAILY #30 tabs 05/15/23 [Rx Confirmed 05/16/23 Last Taken Unknown] ondansetron 4 mg disintegrating tablet 4 mg PO Q8H #21 tabs 05/15/23 [Rx Confirmed 05/16/23 Last Taken Unknown] potassium chloride 10 mEq capsule,extended release 10 meq PO BID #20 caps 05/15/23 [Rx Confirmed 05/16/23 Last Taken Unknown] Home Acetaminophen (Acetaminophen 325 Mg Tablet) 650 mg PO Q4H PRN PRN Reason: Mild Pain Buspirone HCl (Buspirone Hcl 10 Mg Tablet) 5 mg PO BID PRN PRN Reason: Anxiety Cyclobenzaprine HCl (Cyclobenzaprine Hcl 10 Mg Tablet) 10 mg PO DAILY PRN PRN Reason: Spasms Sodium Chloride (Sodium Chloride) 1,000 mls @ 100 mls/hr IV .Q10H ONE Stop: 05/16/23 12:41 Last Admin: 05/16/23 03:05 Dose: 100 mls/hr CEFTRIAXONE/D5W 1 GM PREMIX (Rocephin 1 Gm/50 Ml D5w) 1 gm in 50 mls @ 100 mls/hr IV DAILY VALENCIA Stop: 05/19/23 11:29 Ketorolac Tromethamine (Ketorolac Tromethamine 15 Mg/Ml Vial) 15 mg IVP Q6HR PRN PRN Reason: Pain Stop: 05/20/23 11:24 Naloxone HCl (Naloxone Hcl 2 Mg/2 Ml Disp.Syrin) 2 mg IM Q2MIN PRN PRN Reason: POSS>3 Naloxone HCl (Naloxone Hcl 2 Mg/2 Ml Disp.Syrin) 2 mg IM Q2MIN PRN PRN Reason: POSS>3 Ondansetron HCl (Ondansetron Hcl/Pf 4 Mg/2 Ml Sdv) 4 mg IVP Q6HR PRN PRN Reason: Nausea / Vomiting Discontinued Medications Sodium Chloride (Sodium Chloride) 1,000 mls @ 500 mls/hr IV .Q2H ONE Stop: 05/16/23 02:14 Last Infusion: 05/16/23 02:46 Dose: Infused Ketorolac Tromethamine (Ketorolac Tromethamine 30 Mg/Ml Vial) 30 mg IVP ONCE STA Stop: 05/16/23 00:18 Last Admin: 05/16/23 00:44 Dose: 30 mg Morphine Sulfate (Morphine Sulfate 4 Mg/Ml Syringe) 4 mg IVP ONCE ONE Stop: 05/16/23 01:52 Last Admin: 05/16/23 02:12 Dose: 4 mg Ondansetron HCl (Ondansetron Hcl/Pf 4 Mg/2 Ml Sdv) 4 mg IVP ONCE STA Stop: 05/16/23 00:18 Last Admin: 05/16/23 00:43 Dose: 4 mg Pantoprazole Sodium (Pantoprazole Sodium 40 Mg Vial) 40 mg IVP ONCE ONE Stop: 05/16/23 00:18 Last Admin: 05/16/23 00:46 Dose: 40 mg Promethazine HCl (Promethazine Inj 25 Mg/Ml) 25 mg IM ONCE ONE Stop: 05/16/23 01:35 Last Admin: 05/16/23 01:43 Dose: 25 mg Opioid Naive vs. Tolerant Does Patient Take Opioids?: Yes Is Patient Opioid Naive?: No What is Opioid Naive?: *Opioid Naive implies the patient is not already taking opioids or not chronically receiving opioids on a daily basis. *PRN dosing is not "usually" associated with tolerance. *Patients are at higher risk of over-sedation and aspiration. Is Patient Opioid Tolerant?: No What is Opioid Tolerant?: *Opioid Tolerance implies less than the expected response to an opioid. *Acquired tolerance is defined by the patient taking 60mg of oral morphine daily (or equianalgesic dose of another opioid) for 1 week or more. *Often associated with chronic pain. *May take more than usual dose to achieve desired pain control. Review of Systems Constitutional: Reports Chills, Sweats and Loss of appetite Head: Reports Normocephalic and Atraumatic Eyes: Reports No symptoms Ears: Reports No symptoms Nose: Reports No symptoms Mouth: Reports No symptoms Throat: Reports No symptoms Cardiovascular: Reports No symptoms Respiratory: Reports No symptoms Gastrointestinal: Reports Nausea, Vomiting and Abdominal pain Genitourinary: Reports No Symptoms Musculoskeletal: Reports No symptoms Endocrine: Reports No symptoms Hematology: Reports No symptoms Immunology: Reports No symptoms Neurological: Reports No symptoms Psychiatric: Reports No symptoms Physical examination Most Recent Vital Signs: Most Recent Vital Signs Temperature 97.8 F 05/16/23 05:05 Temperature Source Temporal Artery Scan 05/16/23 05:05 Temperature Source Tympanic 05/15/23 23:58 Pulse Rate 68 05/16/23 08:00 Respiratory Rate 18 05/16/23 08:00 Blood Pressure 152/82 H 05/16/23 05:05 Blood Pressure Mean 105 05/16/23 05:05 Blood Pressure Left Arm 139/66 05/16/23 03:34 Blood Pressure Location Left Arm 05/16/23 05:05 Blood Pressure Position Supine 05/16/23 05:05 O2 Sat by Pulse Oximetry 98 05/16/23 05:05 Oxygen Delivery Method Room Air 05/16/23 09:52 Height 5 ft 3 in 05/16/23 03:34 Weight 194 lb 05/16/23 03:34 Appearance: Positive No Apparent Distress and Alert and Oriented x3 Skin: Positive Warm; Negative Good Turgor HEENT: Positive Normocephalic, Oral Mucous Moist and PERRLA Neck: Positive Supple and Midline Trachea Chest/Lungs: Positive Symmetrical With Equal Breath Sounds, Clear to Auscultation Bilaterally and Good Air Movement all 4 Lung Rivera Heart: Positive RRR and Pulses Normal GI/: Positive Soft, Nontender, Bowel Sounds Normal, No Distention and No Organomegaly Musculoskeletal: Positive Not Examined Extremities: Positive Intact Peripheral Pulses, Stable Joints Without Laxity and Good ROM in All Joints Neurological: Positive Sensation Intact, Motor intact, Alert, Oriented and Muscle Strength 5/5 in Upper and Lower Extremities Bilaterally Psychiatric: Positive Oriented x4, Appropriate Mood, Appropriate Affect, Intact Memory, Good Short-Term Recall, Good Long-Term Recall, Normal Judgement and Normal Insight Labs This Visit Labs This Visit: Labs This Visit 05/16/23 05/16/23 05/16/23 00:40 02:25 07:23 WBC 9.71 8.57 RBC 4.47 4.35 Hgb 12.3 12.0 Hct 37.7 37.1 MCV 84.3 85.3 MCH 27.5 27.6 MCHC 32.6 32.3 RDW Coeff of Gadiel 14.0 14.0 Plt Count 248 220 Immature Gran % (Auto) 0.3 0.2 Neut % (Auto) 73.4 68.5 Lymph % (Auto) 19.7 23.5 [place] % (Auto) 5.9 7.4 Eos % (Auto) 0.2 0.0 Baso % (Auto) 0.5 0.4 Neut # (Auto) 7.1 H 5.9 Lymph # (Auto) 1.9 2.0 [place] # (Auto) 0.6 0.6 Eos # (Auto) 0.0 0.0 Baso # (Auto) 0.1 0.0 Immature Gran # (Auto) 0.0 0.0 Sodium 138.7 136.2 Potassium 3.95 4.00 Chloride 102.5 105.6 Carbon Dioxide 29.5 26.4 Anion Gap 10.65 8.20 BUN 17.0 15.2 Creatinine 0.81 0.66 Estimated GFR (MDRD) 76.00 96.00 BUN/Creatinine Ratio 20.98 23.03 Glucose 147.0 H 116.6 H Calcium 9.12 8.38 L Magnesium 2.03 Total Bilirubin 0.96 AST 34.3 ALT 59.9 H Alkaline Phosphatase 51.5 Total Protein 6.18 L Albumin 3.72 Globulin 2.46 Albumin/Globulin Ratio 1.51 Lipase 189.7 SARS CoV-2 RNA Rapid LANNY Negative Imaging Imaging: EXAM: CT SCAN ABDOMEN PELVIS WITHOUT CONTRAST HISTORY: Left flank pain COMPARISON: CT scan abdomen pelvis 04/11/2018 FINDINGS: Helically acquired axial images obtained through the abdomen pelvis without contrast utilizing a 0.5 collimation. Sagittal and coronal reconstructions were imaged and reviewed.. Visualized lung bases are clear. There has been prior cholecystectomy.. Fatty infiltration is of throughout the liver. The pancreas spleen and right adrenal gland have normal unenhanced CT appearance. There is a stable left adrenal adenoma. The abdominal aorta is normal course caliber. The kidneys are morphologically normal. There is no free fluid inflammatory changes. There is normal appendix. There is a left adnexal cyst measuring 3.8 x 3.4 cm Previously noted in the midline central pelvic mass is smaller there is. Prior measurement was 2.6 cm. Bone windows reveals no lytic or blastic lesions. IMPRESSION: No acute intra-abdominal findings.. Left adnexal cyst. No evidence of nephrolithiasis or ureterolithiasis.. Prior cholecystectomy. Fatty liver. Review Statement Review Statement: I have independently reviewed and interpreted the labs/EKGs/imaging that were ordered by the ER provider. I have reviewed all outside records that are available currently in our EMR including imaging/notes/labs from previous visits. Plan Plan: 1. Intractable N/V - Improving, no further episodes of vomiting, zofran prn, clear liquid diet ordered - advanced as tolerated 2. Abdominal pain - intermittent, pain started in flank and is now in LLQ, no urine output since admission on rounds, UA completed once able to urinate with +blood, repeating CT abd pelvis to r/o obstructing kidney stone 3. UTI - rocephin 1G Q24H, urine culture pending 4. Adnexal cyst - discussed need for OBGYN on d/c 5. Anxiety - chronic, continue home prn medications DVT Prophylaxis: Ambulation Time Spent: Greater than 80 minutes spent with patient, 50% of the time spent with this patient was devoted to counseling and coordination of care. Advanced [facility] Plannin minutes spent discussing advance care planning. Smoking Cessation: 3-10 minutes spent discussing smoking cessation. Disposition: Admit to: Med/Surg Observation Full Code Discussed Plan of Care with Dr. Asad Bird. Medications Medication Orders: Medications Ordered Category Date Time Status Acetaminophen [Tylenol] Meds 05/16/23 07:06 Active 650 mg PO Q4H PRN Buspirone HCl [Buspar] Meds 05/16/23 10:01 Ordered 5 mg PO BID PRN Cyclobenzaprine HCl [Flexeril] Meds 05/16/23 10:01 Ordered 10 mg PO DAILY PRN Naloxone HCl [Narcan] Meds 05/16/23 01:51 Active 2 mg IM Q2MIN PRN Naloxone HCl [Narcan] Meds 05/16/23 02:47 Active 2 mg IM Q2MIN PRN Ondansetron HCl/Pf [Zofran 4 mg/2 ml] Meds 05/16/23 02:42 Active 4 mg IVP Q6HR PRN Sodium Chloride 0.9% [Sodium Chloride] 1,000 ml Meds 05/16/23 02:42 Active IV 100 mls/hr
[2023-05-16 10:57] LABS: BILIRUBIN,URINE Negative (NEGATIVE); CLARITY,URINE Clear (CLEAR); COLOR,URINE Yellow (YELLOW); GLUCOSE, URINE (UA) Negative (NEGATIVE); KETONES,URINE Negative (NEGATIVE); LEUKOCYTE ESTERASE ,URINE Negative (NEGATIVE); NITRITE,URINE Negative (NEGATIVE); PROTEIN,URINE Trace (NEGATIVE); URINE, BLOOD 2+ (NEGATIVE)
[2023-05-16 11:14] LABS: CANNABINOID SCREEN,URINE POSITIVE (NEGATIVE); OPIATE SCREEN,URINE POSITIVE (NEGATIVE)
[2023-05-16 11:15] LABS: AMPHETAMINE SCREEN,URINE NEGATIVE (NEGATIVE); BARBITURATE SCREEN,URINE NEGATIVE (NEGATIVE); BENZODIAZEPINES SCREEN,URINE NEGATIVE (NEGATIVE); COCAIN SCREEN,URINE NEGATIVE (NEGATIVE); METHADONE URINE SCREEN NEGATIVE (NEGATIVE); METHAMPHETAMINES SCREEN,URINE NEGATIVE (NEGATIVE); OXYCODONE URINE SCREEN NEGATIVE (NEGATIVE); PHENCYCLIDINE SCREEN,URINE NEGATIVE (NEGATIVE); TRICYCLIC ANTIDEPRESSANTS URIN POSITIVE (NEGATIVE)
[2023-05-16 11:16] LABS: AMORPHOUS SEDIMENT,UR 1+ (NOT PRESENT); BACTERIA,URINE 3+ (NOT PRESENT); MUCUS,URINE 4+ (NOT PRESENT); SQUAMOUS EPITHELIAL CELL,UR 20-30 (0-5); URINE WBC, MICROSCOPIC 0-2 (0-2)
[2023-05-16] MEDS: ROCEPHIN 1 GM/50 ML D5W 1 GM/50 ML BAG IV SCH (11:55)
[2023-05-16] MEDS: ZOFRAN 4 MG/2 ML IVP PRN (11:56)
[2023-05-16] MEDS: TORADOL IVP PRN (11:57)
--- NOTE | 2023-05-16 12:12 | CT ---
EXAM: CT OF THE ABDOMEN AND PELVIS WITH CONTRAST TECHNIQUE: CT of the abdomen and pelvis was performed with contrast. Multiplanar reformats were perf ormed. HISTORY: Abdomen pain COMPARISON: 05/15/2023 FINDINGS: Imaged lower thorax: No significant findings. Liver: Hepatic steatosis. No enhancing lesions. Liver is enlarged measuring 20 cm. Gallbladder/Bile Ducts: No biliary dilation. The gallbladder is absent. Spleen: Unremarkable. Pancreas: Normal. Adrenals: There is an adrenal nodule on the left measuring two by 1.5 cm. Increased in size from a st ud of 2019. Possible adenoma cannot exclude other etiologies on this contrast on the study. Measur es approximately 45 HU. Kidneys/Ureters: No acute findings. Bowel/mesentery/peritoneum: No bowel obstruction. Normal appendix. No free fluid or free air.Scattere d sigmoid diverticulosis. No inflammatory change.. Retroperitoneum/vessels: No aortic aneurysm. No adenopathy. Pelvis: Normal bladder wall contour.4.3 cm ovarian cyst on the left. Questionable internal septation . Pelvic ultrasound recommended to assess further uterus is atrophied or absent.. Bones: Degenerative changes are present within the hips and sacroiliac joints.No acute fracture. IMPRESSION: 1. 4.3 cm ovarian lesion on the left. Follow-up with pelvic ultrasound recommended. 2. Atrophy versus absent uterus. There appears to be prominent cervical or uterine remnant similar t o previous day's study. 3. Hepatic steatosis 4. Post cholecystectomy. 5. Left adrenal nodule. Indeterminate for adenoma versus other lesion. New compared to 2019. 6. Scattered sigmoid diverticuli. All CT scans are performed using dose optimization techniques as appropriate to the performed exam an d includes at least one of the following: Automated exposure control, adjustment of the mA and/or kV according to size, and the use of iterative reconstruction technique. All CT scans are performed using dose optimization techniques as appropriate to the performed exam an d include at least one of the following: Automated exposure control, adjustment of the mA and/or kV according t o size, and the use of iterative reconstruction technique.
[2023-05-16] MEDS: SODIUM CHLORIDE 1,000 ML IV SCH (13:29)
[2023-05-16] MEDS: FLEXERIL PO PRN (21:05)
[2023-05-17 07:10] LABS: BASOPHILS # (AUTO) 0.1 K/uL (0-0.2); BASOPHILS % (AUTO) 0.6 % (0.0-3.0); EOSINOPHILS % (AUTO) 0.2 % (0.0-7.0); HEMATOCRIT 35.9 % (37.0-47.0); HEMOGLOBIN 11.9 g/dl (12.0-16.0); IMMATURE GRANULOCYTE % (AUTO) 0.2 % (0.0-5.0); LYMPHOCYTES # (AUTO) 2.6 K/uL (0.60-3.4); MEAN CORPUSCULAR HEMOGLOBIN 27.8 pg (27.0-31.0); MEAN CORPUSCULAR HGB CONC 33.1 (31.8-35.4); MEAN CORPUSCULAR VOLUME 83.9 fl (81.0-99.0); MONOCYTES # (AUTO) 0.7 K/uL (0.4-2.0); MONOCYTES % (AUTO) 8.4 (0-10); NEUTROPHILS # (AUTO) 5.5 K/ul (2.0-6.9); NEUTROPHILS % (AUTO) 61.6 % (42.2-75.2); PLATELET COUNT 212 10^3/uL (140-440); RDW COEFFICIENT OF VARIATION 13.3 % (11.6-14.8); RED BLOOD COUNT 4.28 10^6/ul (4.20-5.40); WHITE BLOOD COUNT 8.86 K/ul (4.6-10.2)
[2023-05-17 07:32] LABS: ALANINE AMINOTRANSFERASE 51.3 U/L (0-35); ALBUMIN 3.63 g/dL (3.5-5.0); ALKALINE PHOSPHATASE 49.5 U/L (38-126); ASPARTATE AMINO TRANSFERASE 27.6 U/L (14-36); BILIRUBIN,TOTAL 1.12 mg/dL (0.2-1.3); BLOOD UREA NITROGEN 11.6 mg/dL (7-17); CALCIUM 8.34 mg/dL (8.4-10.2); CARBON DIOXIDE 23.2 mmol/L (22-30.0); CHLORIDE 104.8 mmol/L (98-107); CREATININE 0.56 mg/dL (0.60-1.30); GLUCOSE 101.5 mg/dL (74-106); POTASSIUM 3.62 mmol/L (3.5-5.1); SODIUM 134.8 mmol/L (134.5-145); TOTAL PROTEIN 5.81 g/dL (6.3-8.2)
--- NOTE | 2023-05-17 07:40 | DCSUM ---
Admission Date Admission Date: 05/16/23 Discharge Date Discharge Date: 05/17/23 Admission Diagnosis Admission Diagnosis: 1. Intractable N/V 2. Abdominal pain 3. UTI 4. Ovarian cyst 5. Anxiety Discharge Diagnosis Discharge Diagnosis: 1. Intractable N/V - Improving 2. Abdominal pain - Improving 3. UTI - Awaiting culture results 4. Ovarian Cyst - Needs follow-up with OBGYN 5. Anxiety - Chronic, stable Hospital Provider Hospital Provider: CHENG SARAH, [facility] Primary Care Physician Primary Care Physician: EMRE TOVAR MD Summary of History and Physical Summary of History and Physical: 47 yo female presented to the ER with vomiting and abdominal pain. Patient reports she has had ongoing vomiting x 4 days and been unable to eat. Has had chills and sweats. Last episode of vomiting was prior to admission. Received zofran and promethazine in the ER. Was seen in the ER and diagnosed with adnexal cyst and discharged home with pain and nausea medication. Abdominal pain located in LLQ, described as an ache. Denies urinary symptoms, fever, diarrhea. Denies bloody vomitus. Hospital Course Subjective: Patient initially had flank pain during 1st ER visit. On admission pain was in LLQ. CT abd pelvis repeated and showed no acute findings. Did show 4.3 cm ovarian cyst. Patient reported pmh of ovarian cyst and stated pain is different. Urinalysis collected and showed mild UTI. Started on rocephin 1G Q24H. Urine culture pending at this time. No WBC count. No fever, tachycardia, or other signs of infection. Labs all within normal limits except AST that is chronically elevated. Sent out gonorrhea/chlamydia labs to r/o PID. Will contact patient if results are positive. Patient showing drug seeking behaviors and has seen [facility]per[facility] Shine PCP multiple times asking for extended leave of absence from work. No pain elicited on exam. Discussed extensively with patient that there is no reason to keep patient here. Discussed to follow-up with PCP and OBGYN. Also discussed to return to ER if symptoms worsen. Appearance: Pleasant, No Apparent Distress and Alert HEENT: MMM, Supple and No JVD CVS: No Murmur, No Rubs and No Gallop Abdomen: Soft, Non-Tender and No Distention Respiratory: No Dyspnea Extremities: No Edema Vital Signs: Most Recent Vital Signs Temperature 97.6 F 05/17/23 05:53 Temperature Source Temporal Artery Scan 05/17/23 05:53 Temperature Source Tympanic 05/15/23 23:58 Pulse Rate 57 L 05/17/23 05:53 Respiratory Rate 18 05/17/23 05:53 Blood Pressure 148/79 H 05/17/23 05:53 Blood Pressure Mean 102 05/17/23 05:53 Blood Pressure Left Arm 139/66 05/16/23 03:34 Blood Pressure Location Left Arm 05/17/23 05:53 Blood Pressure Position Supine 05/17/23 05:53 O2 Sat by Pulse Oximetry 97 05/17/23 05:53 Oxygen Delivery Method Room Air 05/17/23 07:00 Height 5 ft 3 in 05/16/23 03:34 Weight 194 lb 05/16/23 03:34 Lab Results Last 24 Hours: 05/17/23 05/16/23 05/16/23 07:03 10:42 07:23 WBC 8.86 RBC 4.28 Hgb 11.9 L Hct 35.9 L MCV 83.9 MCH 27.8 MCHC 33.1 RDW Coeff of Gadiel 13.3 Plt Count 212 Immature Gran % (Auto) 0.2 Neut % (Auto) 61.6 Lymph % (Auto) 29.0 [place] % (Auto) 8.4 Eos % (Auto) 0.2 Baso % (Auto) 0.6 Neut # (Auto) 5.5 Lymph # (Auto) 2.6 [place] # (Auto) 0.7 Eos # (Auto) 0.0 Baso # (Auto) 0.1 Immature Gran # (Auto) 0.0 Sodium 134.8 136.2 Potassium 3.62 4.00 Chloride 104.8 105.6 Carbon Dioxide 23.2 26.4 Anion Gap 10.42 8.20 BUN 11.6 15.2 Creatinine 0.56 L 0.66 Estimated GFR (MDRD) 117.00 96.00 BUN/Creatinine Ratio 20.71 23.03 Glucose 101.5 116.6 H Calcium 8.34 L 8.38 L Total Bilirubin 1.12 0.96 AST 27.6 34.3 ALT 51.3 H 59.9 H Alkaline Phosphatase 49.5 51.5 Total Protein 5.81 L 6.18 L Albumin 3.63 3.72 Globulin 2.18 2.46 Albumin/Globulin Ratio 1.66 1.51 Urine Color Yellow Urine Clarity Clear Urine pH 7.0 Ur Specific [place] 1.025 Urine Protein Trace H Urine Glucose (UA) Negative Urine Ketones Negative Urine Blood 2+ H Urine Nitrite Negative Urine Bilirubin Negative Urine Urobilinogen 1.0 H Ur Leukocyte Esterase Negative Urine Microscopic RBC 10-20 Urine Microscopic WBC 0-2 Ur Squamous Epith Cells 20-30 Amorphous Sediment 1+ Urine Bacteria 3+ Urine Mucus 4+ Urine Opiates Screen Positive H Ur Oxycodone Screen Negative Urine Methadone Screen Negative Ur Barbiturates Screen Negative U Tricyclic Antidepress Positive H Ur Phencyclidine Scrn Negative Ur Amphetamine Screen Negative U Methamphetamines Scrn Negative U Benzodiazepines Scrn Negative Urine Cocaine Screen Negative U Cannabinoids Screen Positive H Discharge Instructions Discharge Planning: Discharge Planning > 40 minutes If patient is discharged with left ventricular systolic dysfunction: NA Discharged with a beta mejia? [] If no, why not? [] Discharged with an chang/arb? [] If no, why not? [] DX: UTI RX: KEFLEX BLAND DIET ACTIVITY TOLERATED FOLLOW-UP WITH PCP AND OBGYN THIS WEEK Discharge Medications: Medications at Discharge (Home Meds & RX) buspirone 5 mg tablet 5 mg PO BID PRN anxiety #180 tabs 05/07/23 cyclobenzaprine 10 mg tablet 10 mg PO DAILY PRN spasms #20 tabs 05/15/23 hydrocodone 5 mg-acetaminophen 325 mg tablet 1 ea PO Q6HR PRN severe pain #15 tabs 05/15/23 meloxicam 15 mg tablet 15 mg PO DAILY #30 tabs 05/15/23 ondansetron 4 mg disintegrating tablet 4 mg PO Q8H #21 tabs 05/15/23 potassium chloride 10 mEq capsule,extended release 10 meq PO BID #20 caps 05/15/23 Discharge Plan Discharge Discharge Orders: Discharge Patient (ONCE); Ordered 05/17/23 Ordered By: HALEIGH CAMPOVERDE Activity Restrictions/Additional Instructions: Honeydew diet, advance as tolerated Activity as tolerated Tylenol/ibuprofen for pain control. Follow-up with PCP and OBGYN this week. Medications: Keflex 500 mg twice a day for 5 days starting tomorrow - you will be called if your urine culture shows this antibiotic is not appropriate for treatment Instructions: Ovarian Cyst (GEN), Urinary Tract Infection in Women (GEN) Patient Disposition: HOME SELF-CARE Prescriptions: New cephalexin 500 mg capsule 500 mg PO BID 5 Days Qty: 10 0RF Continued cyclobenzaprine 10 mg tablet 10 mg PO DAILY PRN (Reason: spasms) Qty: 20 0RF hydrocodone-acetaminophen 5-325 mg tablet 1 ea PO Q6HR PRN (Reason: severe pain ) Qty: 15 0RF Rx Instructions: meloxicam 15 mg tablet 15 mg PO DAILY Qty: 30 0RF ondansetron 4 mg tablet,disintegrating 4 mg PO Q8H Qty: 21 0RF potassium chloride 10 mEq capsule, extended release 10 meq PO BID Qty: 20 0RF buspirone 5 mg tablet 5 mg PO BID PRN (Reason: anxiety) Qty: 180 0RF Did you review [place] [employer] for ALL controlled substances?: No Discussed opioids are addictive and Narcan is available by prescription or from pharmacy.: No Condition: Stable
[2023-05-17 09:49] VITALS: BP 145/77; PULSE 46; RESP 16; TEMP 97.7
[2023-05-19 19:09] LABS: CHLAMYDIA TRACHOMATIS, NAA Negative (Negative); NEISSERIA GONORRHOEAE, NAA Negative (Negative)
== END 2023-05-17 10:15 | disposition home or self-care (01) ==
LOC: ED 23:54 → MEDSURG B 23:54
PROVIDERS: ADMIT Hospitalist; ATTEND Nurse Practitioner Family
DX: R10.32 Left lower quadrant pain; Z20.822 Contact with and (suspected) exposure to COVID-19; F17.210 Nicotine dependence, cigarettes, uncomplicated; R11.2 Nausea with vomiting, unspecified; K76.0 Fatty (change of) liver, not elsewhere classified; Z11.3 Encounter for screening for infections with a predominantly sexual mode of transmission; N83.202 Unspecified ovarian cyst, left side; Z72.89 Other problems related to lifestyle; R19.7 Diarrhea, unspecified; E27.9 Disorder of adrenal gland, unspecified; Z79.899 Other long term (current) drug therapy; Z51.81 Encounter for therapeutic drug level monitoring; N39.0 Urinary tract infection, site not specified; F41.9 Anxiety disorder, unspecified